=== PATIENT | female | born 1990 | race Caucasian/White ===

== ENCOUNTER 2024-10-27 21:09 | Emergency (ER) | payer MEDICARE ==
[~2024-10-27] VITALS: Ht 154.9 cm; Wt 108.9 kg
[2024-10-27 21:22] VITALS: PULSE 114; RESP 18; TEMP 98
[2024-10-27] MEDS: HYDROCODONE/APAP 5MG-325MG TAB PO ONE (23:31)
[2024-10-27 23:40] VITALS: BP 140/79; PULSE 114; RESP 18; TEMP 98; O2SAT 93
== END 2024-10-27 23:40 | disposition home or self-care (01) ==
LOC: FSED 21:27
DX: M54.50 Low back pain, unspecified (principal); S00.83XA Contusion of other part of head, initial encounter; W18.39XA Other fall on same level, initial encounter; Y92.89 Other specified places as the place of occurrence of the external cause; J45.909 Unspecified asthma, uncomplicated; F41.9 Anxiety disorder, unspecified
CPT/HCPCS: 71046; 72128; 72131; 99283